=== PATIENT | male | born 1960 | race Caucasian/White ===

== ENCOUNTER 2025-04-03 16:03 | Inpatient (IN) | payer OTHER, SELFPAY ==
[2025-04-03 12:33] VITALS: BMI 24.1
[2025-04-03 13:19] LABS: Troponin I < 0.012 ng/ml
[2025-04-03 13:21] LABS: Hematocrit 46.1 % (39.0-52.0); Hemoglobin 15.9 g/dL (13.0-18.0); Mean Corp Hgb Conc. 34.5 g/dL (33.0-37.0); Mean Corpuscular Volume 91.1 fL (80.0-94.0); Nucleated Red Blood Cells % 0 % (-); Platelet Count 135 10^3/uL (130-400); Red Cell Dist. Width 12.9 % (11.5-14.5)
[2025-04-03 14:04] LABS: Blood Urea Nitrogen 20 mg/dl (9-20); Calcium 8.4 mg/dl (8.4-10.2); Carbon Dioxide 30 mmol/L (22-30); Chloride 101 mmol/L (98-107); Estimated Creatinine Clearance 99 ml/min; Glucose 269 mg/dl (70-99); Sodium 129 mmol/L (135-145); eGFR > 60.00
--- NOTE | 2025-04-03 14:13 | ED.GENMED ---
History of Present Illness
General
Chief Complaint: Cardiac Symptoms
Time Seen by Provider: 04/03/25 14:07
Nursing documentation reviewed up to this point in time: agreed with
History of Present Illness
History of Present Illness:
65-year-old male brought to the ER by longterm staff for evaluation of new onset atrial fibrillation. Patient denies any complaints or concerns. He is unaware of how he ended in the emergency department. Patient was in the infirmary due to alcohol
withdrawal symptoms. He denies any complaints of chest pain. He denies any prior personal history of atrial fibrillation. He reports feeling otherwise well. He is on Seroquel and carries a diagnosis of diabetes.
Review of Systems
Review of Systems
Allergies reviewed?: Yes
Phy Exam
Physical Exam
Physical Exam:
Patient is awake, alert, appears in no acute distress, head is NCAT, PERRL, EOMI mucous membranes moist, conjunctiva pink, heart irregular rate and rhythm without murmurs or ectopy, lungs are clear to auscultation without wheezes rales or rhonchi,
no JVD, abdomen is soft and nontender on palpation, extremities without edema, GCS is 15
Course
Orders/Labs/Results
Orders:
Orders
04/03/25 Breakfast
2000 calorie (17 carb) Diabetic
At Your Request: Full Participation
Does patient need a safe tray?: Yes
04/03/25 12:38
Electrocardiogram (*1) Urgent
Reason for Study: Tachycardia
EKG- Treatment ONCE
04/03/25 12:40
Complete Blood Count/With Diff Urgent
Troponin I Urgent
04/03/25 13:36
Basic Metabolic Panel Urgent
04/03/25 14:38
Add On- LAB Urgent
Tests Added?: Alcohol
04/03/25 14:42
Heparin 4,000 units IV NOW STA
Nursing to Place Non Medication Order As Directed
Physician Order: PTT 6 hours after initial start of Heparin infusion
Above order entered?: Yes
04/03/25 14:45
Heparin 40409 Units/250 ml 25,000 units in 250 ml IV PER PROTOCOL
Weight to be used for heparin protocol in kilograms (kg):: 71.8
Protocol:: Cardiac Tx/Acute Coronary
PTT Goal Range to be used:: PTT 73 to 111 seconds
Order type:: Initial
INITIAL Infusion Dose (UNITS/KG/hr) & then follow protocol:: 12 units/kg/hr
Infusion Dose in UNITS/hr & then follow protocol (UNITS/hr):: 850
INFUSION RATE in mL/hr & then follow protocol (mL/hr):: 8.5
PTT less than or equal to 64 seconds:: Increase rate by 200 units/hr (+ 2 mL/hr)
PTT 64.1 to 72.9 seconds:: Increase rate by 100 units/hr (+ 1 mL/hr)
PTT 73 to 111 seconds:: Target Range. No change in rate.
PTT 111.1 to 130.9 seconds:: Decrease rate by 100 units/hr (- 1 mL/hr)
PTT 131 to 199.9 seconds:: HOLD for 1 hr. Then decrease rate by 200 units/hr (- 2 mL/hr)
PTT greater than or equal to 200 seconds:: HOLD for 2 hrs & Notify Provider. Then decrease by 200 units/hr (-
2 mL/hr)
Lab follow-up:: Each change, PTT q6h until 2 consecutive are therapeutic. Then PTT
daily.
04/03/25 15:03
Admit/Transfer Patient As Directed
Co-Sign Provider:
Level of Care: Inpatient admission
Assign to:: Telemetry
Physician / Group: darrick
Diagnosis: new onset atrial fib
Reason for Telemetry: Arrhythmia
Date to Stop Telemetry: 04/06/25
Time to Stop Telemetry: 11:00
Reason for Hospitalization: new onset atrial fib
Expected length of stay greater than two midnights?: Yes
ELOS- Estimated Length of Stay in days: 3
I certify the patient meets the requirements for IP care: Yes
04/03/25 15:04
PRN Pain Medication Management As Directed
May give lesser potent ordered pain med per pt: Yes
preference::
Protocol:: Medication orders for pain may be administered in a
manner that supports deferring to patient preference
when the pt is:
- Requesting an ordered lesser potent pain medication.
Least to most potent pain medications are defined
as: acetaminophen < NSAID < tramadol < opioids
(morphine, oxycodone, hydromorphone).
- Requesting a lesser dose of the same medication IF
ORDERED.
- Requesting a less intrusive route of administration
if both routes are prescribed by the provider (PO <
IV).
04/03/25 15:05
Code Status As Directed
Resuscitation Status: Full Code
04/03/25 15:09
Add On- LAB Stat
Tests Added?: serum osmolality
Urine Osmolality Random [Osmolality, Random Urine] Stat
Urine Sodium Stat
04/03/25 15:15
Alcohol Urgent
PTT Urgent
Comment: Obtain baseline before beginning heparin infusion if not already collected
Serum Osmolality Urgent
Comment: ADD ON
04/03/25 17:06
Acetaminophen [Tylenol] 650 mg PO Q4HPRN PRN
Bisacodyl [Dulcolax] 10 mg RECTAL [id number] PRN
Dextrose 50%-Water [Dextrose 50% Syringe] 12.5 grams IV [id number] PRN
Docusate W/Senna [Senokot-S] 1 tablet PO BIDPRN PRN
FOLic ACID [Folvite] 1 mg 0.9% Sodium Chloride 50 ml [Nss] 50 ml IV DAILYPRN
Glucagon [GlucaGen] 1 mg IM PRN PRN
Insulin Aspart Corrective Low [Novolog Flexpen-Low Resistance] See Protocol SC AC
Lorazepam [Ativan] 1 mg PO Q2HPRN PRN
Polyethylene Glycol Powder [Miralax] 17 grams PO DAILYPRN PRN
04/03/25 17:06
CARDIOLOGY CONSULT Routine
Consulting Provider: Camille Song
Was physician already notified: Yes
Case Management Consult Once
Case Management Consult: Other
Comment: Substance abuse counseling
DIETARY IP CONSULT Routine
Reason for Consult: Nutrition support, possible refeeding guidelines
Heparin Protocol- PTT Orders As Directed
PTT per Heparin protocol: -Obtain CBC and baseline PTT - if not already collected.
-Obtain PTT 6 hours from start of infusion. Then, every 6 hours until 2 consecutive
PTT's are therapeutic. Then, PTT Daily.
-With each rate change, obtain PTT every 6 hours until 2 consecutive PTT's are
therapeutic. Then, PTT Daily.
Activity As Directed
Activity Level: As Tolerated
Bedside Glucose Monitoring As Directed
Frequency: AC&HS
Additional Instructions:: Change to q6h if pt on TPN, tube feeding or not eating
MSAS SCORE As Directed
MSAS Score 0-4: Repeat MSAS every 2 hours until 0-4 for three consecutive assessments, then every 4 hours x 48
hours.
MSAS Score 5-7: For MILD withdrawl symptoms. Repeat MSAS and RASS every 2 hours
MSAS Score 8-11: For MODERATE withdrawal symptoms. Repeat MSAS and RASS every 1 hour. Consider ICU or IMU
level of care.
MSAS Score > 11: For SEVERE withdrawal symptoms. Repeat MSAS and RASS every 1 hour. Notify provider, consider
ICU level of care.
MSAS Additional Instructions: If no improvement or no decrease in score from severe to moderate within 12
hours, consult psychiatry
MSAS Notify Provider: Notify provider if patient requires more than 10 mg of Lorazepam in eight hour period.
Notify MD As Directed
Notify physician if: PTT is greater than or equal to 200.
Vital Signs As Directed
Frequency: Per unit guidelines
04/03/25 17:22
diazePAM [Valium Injection] 5 mg IV Q1HPRN PRN
04/03/25 17:23
diazePAM [Valium Injection] 10 mg IV Q1HPRN PRN
04/03/25 20:00
Thiamine Injection 200 mg IV Q12
04/03/25 21:45
PTT Urgent
04/03/25 22:00
Quetiapine Fumarate [Seroquel] 50 mg PO HS
04/04/25 06:00
Basic Metabolic Panel IN AM
Cardiovascular Evaluation IN AM
Complete Blood Count/No Diff IN AM
Glycohemoglobin (HgbA1c) IN AM
04/04/25 08:00
FOLic ACID [Folvite] 1 mg PO DAILY
Quetiapine Fumarate [Seroquel] 25 mg PO DAILY
04/05/25 06:00
Basic Metabolic Panel IN AM
Complete Blood Count/No Diff IN AM
Complete Blood Count/No Diff Q2D
Comment: notify provider: Platelet count < 130,000 or decrease by 50% from baseline
04/06/25 06:00
Basic Metabolic Panel IN AM
Complete Blood Count/No Diff IN AM
04/06/25 11:00
DC Protocol for Telemetry ONCE
04/06/25 20:00
Thiamine HCl [Vitamin B1] 100 mg PO BID
04/07/25 06:00
Complete Blood Count/No Diff Q2D
Comment: notify provider: Platelet count < 130,000 or decrease by 50% from baseline
04/09/25 06:00
Complete Blood Count/No Diff Q2D
Comment: notify provider: Platelet count < 130,000 or decrease by 50% from baseline
04/11/25 06:00
Complete Blood Count/No Diff Q2D
Comment: notify provider: Platelet count < 130,000 or decrease by 50% from baseline
04/13/25 06:00
Complete Blood Count/No Diff Q2D
Comment: notify provider: Platelet count < 130,000 or decrease by 50% from baseline
04/15/25 06:00
Complete Blood Count/No Diff Q2D
Comment: notify provider: Platelet count < 130,000 or decrease by 50% from baseline
04/17/25 06:00
Complete Blood Count/No Diff Q2D
Comment: notify provider: Platelet count < 130,000 or decrease by 50% from baseline
04/19/25 06:00
Complete Blood Count/No Diff Q2D
Comment: notify provider: Platelet count < 130,000 or decrease by 50% from baseline
Abnormal Lab Results
04/03/25 04/03/25
12:40 13:36
MCH 31.4 H pg
(27.0-31.0)
MPV 11.3 H fL
(7.4-10.4)
Absolute Monos (auto) 0.8 H 10^3/uL
(0.1-0.6)
Monocytes % 12.1 H %
(1.7-9.3)
Sodium 129 L mmol/L
(135-145)
Glucose 269 H mg/dl
(70-99)
04/03/25 12:40
04/03/25 13:36
No hyponatremia, kidney function preserved. Mild elevation of glucose. CBC within normal limits
Vital Signs
Initial and Last Documented VS:
Initial Vital Signs
Temp
97.7 F
04/03/25 12:33
Last Documented Vital Signs
Temp Pulse Resp BP Pulse Ox
97.8 F 68 18 133/61 99
04/03/25 17:15 04/03/25 17:15 04/03/25 17:15 04/03/25 17:15 04/03/25 17:15
MDM/Problems Addressed
Differential Diagnosis Includes:
Differential diagnosis to consider but not limited to electrolyte dyscrasia, holiday heart, arrhythmia, along with other etiologies considered
Chronic conditions affecting care:
Incarceration, advanced age, mental health disorder, diabetes
*Pulse Oximetry
SaO2: 99
Oxygen Mode of Delivery: Room air
Patient hypoxic: no
*Critical Care Note
Total Time (30-74mins, 75-104mins- exclusive of procedures): Not Applicable
Update Note
Update Note:
Patient resting comfortably. Given patient is currently incarcerated with no prior history of A-fib and is asymptomatic, would feel necessary for inpatient evaluation to complete cardiac assessment and initiation of anticoagulation. I reviewed
full patient presentation with the hospitalist who accepts patient for admission.
ED Attending Note
-
Portions of this chart may have been created with voice recognition software.� Occasional wrong word or��sound alike� substitutions may have occurred due to the inherent limitations of voice recognition software.
Discharge Plan
Departure
Patient Disposition: Admit
Date of Disposition: 04/03/25
Time of Disposition: 14:44
Presentation/result/management discussed w/ accepting MD/DO: Hospitalist
Discharge Problem:
Atrial fibrillation
Interventions
Interventions:
*Risk Screen - Suicide Last Done: 04/03/25 12:33
*General Assessment Last Done: 04/03/25 12:33
*Neglect/Abuse Screening Last Done: 04/03/25 12:33
*ED- Fall Risk Assessment Last Done: 04/03/25 12:33
*ED COVID-19 Vaccine History Last Done: 04/03/25 12:33
*Nursing Disposition Last Done: 04/03/25 16:54
ED- Pulmonary Assessment Last Done: 04/03/25 12:33
ED- Cardiac Assessment Last Done: 04/03/25 12:33
Discharge Date and Time
Discharge Date/Time: 04/03/25 16:54
--- NOTE | 2025-04-03 14:44 | HPS.HSE ---
Family Physician
-
Family Physician: [facility]
Chief Complaint
-
irregular HR
History of Present Illness
65 year old with PMH for DM non compliance with insulin,alcohol abuse presented to us with abnormal heart rhythm from [facility]. he was admitted to [facility] on last Thursday. he had abnormal EKG at long-term. patient denied chest pain, palpitation,fever, chills,
PATEL,dizzy or syncope. denied cough, congestion. denied abdominal pain,n,v,d. denied dysuria or hematuria.
upon arrival he was noted in atrial fib, HR controlled. initiated on heparin drip. admitting for further management.
Patient has a history of alcohol abuse/his last drink was on /he drinks 12 pack of beer
Medical History
Past Medical History
Past Medical History: Reports Other
Additional Past Medical History:
Type 2 diabetes, alcohol abuse
Past Surgical History: Reports None
Social History
Tobacco: Smoker (Half a pack)
Alcohol: Daily (12 packs of beer)
Drug: None
Living: Detention
Family History
Family History: Not pertinent
Allergies / Home Medications
Allergies reflects when Allergies were last updated in [facility].
Home Medications with original date entered in [facility]
Allergy/Medication List:
Allergies
Allergy/AdvReac Type Severity Reaction Status Date / Time
No Known Allergies Allergy Unverified 04/03/25 14:50
Home Medications
clonazepam 0.5 mg tablet 0.5 mg PO BID 04/03/25
clonazepam 0.5 mg tablet 0.5 mg PO DAILY 04/03/25
clonazepam 1 mg tablet 1 mg PO BID 04/03/25
diphenhydramine HCl 25 mg capsule (Benadryl) 25 mg PO BID 04/03/25
folic acid 1 mg tablet 1 mg PO DAILY 04/03/25
magnesium 200 mg tablet 400 mg PO DAILY 04/03/25
multivitamin 1 tab PO DAILY 04/03/25
quetiapine 25 mg tablet (Seroquel) 25 mg PO DAILY 04/03/25
quetiapine 50 mg tablet (Seroquel) 50 mg PO HS 04/03/25
Review of Systems
-
Constitutional: Reports No Symptoms
EENT: Reports No Symptoms
Respiratory: Reports No Symptoms
Cardiac: Reports No Symptoms
Abdomen/GI: Reports No Symptoms
: Reports No Symptoms
Musculoskeletal: Reports No Symptoms
Skin: Reports No Symptoms
Neurological: Reports No Symptoms
Endocrine: Reports No Symptoms
Hematologic/Lymphatic: Reports No Symptoms
Psych: Reports No Symptoms
Physical Exam
Vital Signs
Vital Signs
Temp Pulse Resp Pulse Ox
97.7 F 67 18 100
04/03/25 12:33 04/03/25 14:30 04/03/25 14:30 04/03/25 14:30
Physical Exam
General: Well Developed, Well Nourished and No Apparent Distress
HEENT: NormoCephalic, Moist mucous membranes and Atraumatic
Respiratory: Clear
Cardiac: S1/S2 and Regular Rhythm; No Murmur or Rub
GI: Soft, Non Tender, Non Distended and Normal Bowel Sounds; No Organomegaly
Rectal: Deferred by Provider
Musculoskeletal: No Clubbing, No Cyanosis and No Edema
Skin: No Rash
Neuro: AO x 3 and Nonfocal/grossly intact
Psych: Calm
Laboratory Results
-
04/03/25 12:40
04/03/25 13:36
Laboratory Results
Total Bilirubin Cancelled 04/03/25 13:36
AST Cancelled 04/03/25 13:36
ALT Cancelled 04/03/25 13:36
Alkaline Phosphatase Cancelled 04/03/25 13:36
Troponin I < 0.012 ng/ml 04/03/25 12:40
Data Reviewed
-
Lab Data: Labs Reviewed by me
Impression/Plan
-
# asymptomatic atrial flutter
- EKG with a flutter with variable AV block, right bundle branch block
- Heparin drip continue
- Obtain echocardiogram
- Cardiology consulted
# Hyponatremia likely hypovolemic
-corrected sodium is 133
-Obtain serum osmolality, urine sodium, osmolality
-BMP in a.m.
# Alcohol abuse
-drink 12 packs of beer
-last drink was on
- Alcohol level pending
# DVT prophylaxis
-On heparin
# CODE STATUS
-Full code
[2025-04-03 15:00] VITALS: BP 123/64
[2025-04-03 15:32] LABS: APTT 28.7 Sec (23.4-35.0)
--- NOTE | 2025-04-03 15:36 | W.PN.UPDATE ---
Update Note
Progress Note Update
I saw and examined the patient.
The PROFESSIONAL NURSING TUTOR Daniel's note was reviewed and I agree with the note.
Comment: 65 y/o M, hx of Type 2 DM, Alcohol intake (daily), daily smoker, presenting from [facility] with screening EKG showing A.Flutter. He was admitted to longterm Thursday. Patient reports last drink . Denies any SOB, palpitations, chest pain, no
fever/chills. No syncope. No other complaints.
in ER, rate controlled Aflutter on EKG. patient started on IV heparin drip. No evidence of acute alcohol withdrawal. Na 129.
Exam:
General: Well Developed, Well Nourished and No Apparent Distress
HEENT: Normocephalic, Moist mucous membranes and Atraumatic
Respiratory: Clear
Cardiac: Irregular rhythm. No Murmur or Rub
GI: Soft, Non Tender, Non Distended and Normal Bowel Sounds; No Organomegaly
Rectal: Deferred by Provider
Musculoskeletal: No Clubbing, No Cyanosis and No Edema
Skin: No Rash
Neuro: AO x 3 and Nonfocal/grossly intact
Psych: Calm
Plan: Asymptomatic A. Flutter. Echo. Tele. IV heparin. presently rate controlled. [facility] Cardiology evaluation. Monitor for ETOH withdrawal. Na 133 when corrected for hyperglycemia. SSI - he reports no diabetes meds. Rest of plan as per SEAN Sanchez's note.
[2025-04-03] MEDS: HEPARIN 25000 UNITS/250 ML IV (15:40)
[2025-04-03] MEDS: HEPARIN 4000 UNITS IV (15:41)
[2025-04-03 16:00] VITALS: BP 124/62
[2025-04-03 17:15] VITALS: BP 133/61
[2025-04-03 17:15] LABS: Glucose - Point of Care 134 mg/dl (70-99)
[2025-04-03] MEDS: NOVOLOG FLEXPEN-LOW RESISTANCE SC (17:21)
[2025-04-03 17:22] VITALS: BMI 22.9
[2025-04-03 17:42] VITALS: BMI 22.9
[2025-04-03 19:00] VITALS: BP 118/60
[2025-04-03] MEDS: THIAMINE INJECTION 200 MG IV (21:10)
[2025-04-03] MEDS: SEROQUEL 50 MG PO (21:11)
[2025-04-03 22:09] LABS: Glucose - Point of Care 273 mg/dl (70-99)
[2025-04-03 22:24] LABS: APTT 66.5 Sec (23.4-35.0)
[2025-04-03 23:00] VITALS: BP 126/59
[2025-04-04 03:00] VITALS: BP 134/78
[2025-04-04 04:20] VITALS: BMI 23.7
[2025-04-04 05:00] LABS: APTT 78.0 Sec (23.4-35.0)
[2025-04-04 06:00] VITALS: BMI 23.0
--- NOTE | 2025-04-04 08:14 | W.PN.UPDATE ---
Update Note
Progress Note Update
I saw and evaluated the patient. I reviewed the resident�s note and agree with findings and plan as documented in the resident�s note.
No acute complaints.
Gen: NAD, AAOx3.
Eyes: EOMI, PERRLA, no scleral icterus.
Neck: supple.
CV: RRR, +S1/S2, no m/r/g.
Resp: CTAB, no rales, wheezes, or rhonchi.
Abd: +BS, soft, NT, ND
Skin: No rashes.
Neuro: CN 2-12 intact, non-focal.
Psych: Normal mood and affect.
Aflutter:
- Asymptomatic and currently rate controlled
- Check echo
- Consult cardiology
- Currently on heparin drip
Alcohol abuse disorder:
- Last drink 03/30/25
- MSAS protocol (thiamine/folate/PRN valium)
Hyperglycemia:
- Check A1c
- SSI/accuchecks
Hyponatremia, mild
FULL/Heparin
Dispo: Likely d/c later today
[2025-04-04 08:50] VITALS: BP 136/76
[2025-04-04] MEDS: SEROQUEL 25 MG PO (09:00)
[2025-04-04] MEDS: FOLVITE 1 MG PO (09:00)
[2025-04-04] MEDS: THIAMINE INJECTION 200 MG IV ×2 (09:00→19:58)
[2025-04-04 09:07] LABS: Glucose - Point of Care 150 mg/dl (70-99)
[2025-04-04] MEDS: NOVOLOG FLEXPEN-LOW RESISTANCE SC (09:15)
--- NOTE | 2025-04-04 10:42 | CON.CAR ---
Addendum entered and electronically signed by Fredis Villa MD 04/04/25 12:17:
I saw and examined the patient.
The ELECTRICAL DESIGN TECHNICIAN or PA's note was reviewed and I agree with the note.
Comment: General: Well developed, well nourished in NAD.
Neck: Supple, no JVD, HJR, carotids +2 B/L, no bruits bilaterally.
Heart: Non displaced PMI, irregular, no murmurs, No S3, S4, no rubs.
Lungs: Clear to auscultation bilaterally, no wheeze, rhonchi, rubs bilaterally,
normal expiratory phase.
Abdomen: Normal bowel sounds, soft, non-tender, non-distended.
Extremities: No clubbing, cyanosis or edema bilaterally.
Neuro: Grossly nonfocal, awake, alert and oriented x3.
Fredis has a history of alcohol use. He was arrested for failing to appear for DUI charge. In assisted while going through withdrawal he noted palpitations. He brought to the ER and found to be in rapid atrial flutter.
Echocardiogram with normal LV function. Will add Cardizem. Will change heparin to Eliquis. Will arrange JOHAN/cardioversion on 04/05 after risks and benefits explained to patient in detail
Original Note:
Consultation
Consultation Request
Date/Time Consultation Requested: 04/03/2025 at 1706
Date/Time Consultation Performed: 04/04/2025 at 1032
Requesting Provider: Dr. Lopez
Performing Provider: Dr. Villa
Reason for Consultation: Newly diagnosed atrial flutter of unclear duration
Medical History
-
History of Present Illness:
Patient came to the ER from assisted yesterday with newly diagnosed atrial flutter and cardiology is consulted. Patient says that he is dealing with EtOH use disorder and was arrested for failing to appear for a DUI charge. He was feeling fine, but
while going through withdrawal he was seen in the assisted health clinic and noted to be in atrial flutter. He denies feeling any palpitations, chest pain or SOB. He says he does not receive regular medical care as an outpatient has never seen a
rigging supervisor nor has he had any cardiac testing. Patient denies any known family history of heart disease. When he is drinking he can easily drink 12 beers in a day. He also smokes about a half a pack of cigarettes a day. He is never been tested
for sleep apnea.
PMH:
ETOH use disorder
Past Medical History
Past Medical History: Other (In HPI)
Past Surgical History: None (Denies previous surgery)
Social History
Tobacco: Smoker
Alcohol: Chronic Alcoholic
Drug: None (Denies)
Living: Detention
Family History
Family History: Other (No family history of atrial arrhythmia that he knows of)
Allergies / Home Medications
Allergy/AdvReac Type Severity Reaction Status Date / Time
No Known Allergies Allergy Unverified 04/03/25 14:50
�Medication �Instructions �Recorded �Confirmed �Type
clonazepam 1 mg tablet 1 mg PO .TAPER 04/03/25 04/03/25 History
diphenhydramine HCl 25 mg capsule 25 mg PO BID Allergies 04/03/25 04/03/25 History
(Benadryl)
folic acid 1 mg tablet 1 mg PO DAILY Supplement 04/03/25 04/03/25 History
magnesium 200 mg tablet 400 mg PO DAILY Supplement 04/03/25 04/03/25 History
multivitamin 1 tab PO DAILY Supplement 04/03/25 04/03/25 History
quetiapine 25 mg tablet (Seroquel) 25 mg PO DAILY Mental 04/03/25 04/03/25 History
Health/Anxiety
quetiapine 50 mg tablet (Seroquel) 50 mg PO HS 04/03/25 04/03/25 History
thiamine HCl (vitamin B1) 100 mg 100 mg PO DAILY Supplement 04/03/25 04/03/25 History
tablet (Vitamin B-1)
Review of Systems
-
History Source: Patient
All other systems: Negative unless noted
Physical Exam
Vital Signs
Temp Pulse Resp BP Pulse Ox
97.6 F 77 16 136/76 77
04/04/25 08:50 04/04/25 08:50 04/04/25 08:50 04/04/25 08:50 04/04/25 08:50
GEN: NAD, AAO x 3
HEENT: EOMI, MMM
LUNGS: RA. CTAB/L without wheeze
CV: Atrial flutter on telemetry. Irreg, S1/S2, no appreciable murmur
ABD: soft, BS+, NT, ND
EXT: No edema B/L LE
NEURO: Gross non-focal
SKIN: No rash
Lab Results
Troponin I < 0.012 ng/ml 04/03/25 12:40
Impression / Plan
-
PCP: None
Cardiology: None
Impression:
Admitted with asymptomatic atrial flutter 04/03/2025
Newly diagnosed paroxysmal typical atrial flutter with RVR
Hyponatremia
EtOH use disorder, severe
Active smoker
Hyperglycemia
Plan:
-Patient came to the ER from assisted yesterday with newly diagnosed atrial flutter and cardiology is consulted. Patient says that he is dealing with EtOH use disorder and was arrested for failing to appear for a DUI charge. He was feeling fine, but
while going through withdrawal he was seen in the assisted health clinic and noted to be in atrial flutter. He denies feeling any palpitations, chest pain or SOB. He says he does not receive regular medical care as an outpatient has never seen a
rigging supervisor nor has he had any cardiac testing. Patient denies any known family history of heart disease. When he is drinking he can easily drink 12 beers in a day. He also smokes about a half a pack of cigarettes a day. He is never been tested
for sleep apnea.
-ECG reviewed by me looks like typical atrial flutter
-Talk to patient about plans for JOHAN/CV to try and restore SR
-For now we will add Cardizem CD 120 mg daily, patient was not taking any AV danna blockers as an outpatient
-Patient denies any palpitations and overall seems to be asymptomatic. Duration of atrial arrhythmia unknown. Await JOHAN at time of procedure tomorrow to check EF.
-Heparin gtt was started overnight and will transition to Eliquis 5 mg BID (age 65, wt 68 kg). Patient is currently a part of the [facility] system and they should be able to supply his medication.
-Patient has never had an PAU evaluation, would recommend this for outpatient study
-Check TSH, ordered by me
-HgbA1c is pending after he was noted to be hyperglycemic
-Patient was going through withdrawal, but appears stable now. He says he has severe EtOH use disorder and was drinking 12 beers a day prior to incarceration. EtOH reduction and cessation will be helpful in reducing future recurrence of atrial
arrhythmia.
-He is still smoking about half a pack a day and again eliminating this habit will be beneficial to his cardiovascular and arrhythmia health.
--- NOTE | 2025-04-04 10:44 | W.CHA2DS2VAS ---
[id number] Score
Score
Age in Years (65=0, 65-74=1, >/=75=2): 65-74
Sex (Female=+1): Male
Congestive Heart Failure History (Yes=+1): No
Hypertension History (Yes=+1): No
Stroke/TIA/Thromboembolism History (Yes=+2): No
Vascular Disease History (Yes=+1): No
Diabetes Mellitus (Yes=+1): No
Score >/=2 is otherwise an anticoagulation candidate: 1
[2025-04-04 11:01] LABS: Hematocrit 43.6 % (39.0-52.0); Hemoglobin 15.4 g/dL (13.0-18.0); Mean Corp Hgb Conc. 35.3 g/dL (33.0-37.0); Mean Corpuscular Volume 89.9 fL (80.0-94.0); Platelet Count 134 10^3/uL (130-400); Red Cell Dist. Width 12.9 % (11.5-14.5)
[2025-04-04 11:12] LABS: APTT 65.1 Sec (23.4-35.0)
[2025-04-04 11:18] LABS: Blood Urea Nitrogen 18 mg/dl (9-20); Calcium 8.3 mg/dl (8.4-10.2); Carbon Dioxide 29 mmol/L (22-30); Chloride 102 mmol/L (98-107); Estimated Creatinine Clearance 99 ml/min; Glucose 195 mg/dl (70-99); HDL Cholesterol 100 mg/dl; LDL Cholesterol, Calculated 58 mg/dl; Potassium 4.1 mmol/L (3.5-5.1); Sodium 132 mmol/L (135-145); Very Low Density Lipoprotein 13 mg/dl (0-30); eGFR > 60.00
[2025-04-04 11:21] VITALS: BP 133/72
[2025-04-04 11:42] LABS: Glucose - Point of Care 218 mg/dl (70-99)
--- NOTE | 2025-04-04 12:01 | W.PN.HOSP.TC ---
Addendum entered and electronically signed by Delmy Mota MD, Resident 04/04/25 12:39:
Subjective: The patient has no specific complaints today. He denies palpitations, shortness of breath, chest pain,nausea, vomiting, fever, tremors, lightheadedness.
ROS:
Constitutional: Denies fever, weakness
EENT: Denies symptoms
Respiratory: Denies shortness of breath, cough
Cardiac: Denies chest pain, diaphoresis, palpitations
Abdominal/GI: Denies abdominal pain, nausea, vomiting, diarrhea
Neuro: Denies headache, numbness, tremors
PE:
General:comfortable, conversant
HEENT :normocephalic, anicteric
Respiratory :clear to auscultation
Cardiac: Normal rhythm, S1/S2
GI: Soft, nontender, NBS
Musculoskeletal: No edema
Neuro: AO x3, no tremors
Original Note:
Today's Communication/Plan
-
Stable for discharge
continue Eliquis as outpatient
Hba1c pending--outpatient DM medication tf
Continue to monitor
Assessment / Plan
Assessment / Plan
65-year-old with past medical history of diabetes mellitus, and chronic alcohol abuse presented to the ER for asymptomatic abnormal heart rhythm.
#atrial flutter
-asymptomatic, Regular HR/R
-EKG with a flutter with variable AV block, right bundle branch block
-ECHO: EF: 55%, Mild concentric left ventricular hypertrophy, Mild to moderate mitral valve regurgitation
-continue Heparin drip
-Eliquis 5mg PO BID as outpatient
-Cardiology consulted
Troponin 0.012
# Hyponatremia
-corrected 134 N
-trend BMP
#DM
-269 glucose
-serum osm: 288
Urine osm:753, sodium urine: 85
-SSI, accuchecks
-metformin as outpatient, Hba1c pending
# Alcohol abuse
-drink 12 packs of beer
-last drink was on 03/30/2025
-clonazapam
-Thiamine hcl 200mg IV--> 100mg PO as outpatient
-stop drinking alcohol
# DVT prophylaxis
-Heparin drip
# CODE STATUS
-Full code
Anticipated Discharge: Today
Subjective/Interval History
-
Date of Service: April 04, 2025
Objective Data
-
Labs:
Laboratory Results
04/04/25 04/04/25 04/04/25
04:40 10:39 17:35
WBC 6.5
Hgb 15.4
Hct 43.6
Plt Count 134
APTT 78.0 H 65.1 H Pending
Sodium 132 L
Potassium 4.1
Chloride 102
Carbon Dioxide 29
BUN 18
Creatinine 0.7
Glucose 195 H
Calcium 8.3 L
Vital Signs:
Vital Signs
Temp Pulse Resp BP Pulse Ox
97.6 F 115 16 133/72 100
04/04/25 11:21 04/04/25 11:21 04/04/25 11:21 04/04/25 11:21 04/04/25 11:21
I&O
04/03/25 04/04/25 04/05/25
06:59 06:59 06:59
Intake Total 240 / 240
Output Total 200 / 200
Balance 40 / 40
[2025-04-04 12:38] LABS: Glycohemoglobin (HgbA1c) 8.8 % (4.0-5.6)
[2025-04-04 13:06] LABS: Hepatitis C Antibody Reactive (Negative)
[2025-04-04] MEDS: NOVOLOG FLEXPEN-LOW RESISTANCE 2 UNITS SC (14:19)
[2025-04-04 15:00] VITALS: BP 152/72
--- NOTE | 2025-04-04 15:25 | CM ---
Pt is a prisoner at [facility]. As per [facility] patient will receive substance abuse counseling at care home.
Currently on Heparin Gtt.
He does not use adaptive devices.
Pharmacy [place]
PCP Dr Velázquez
PLAN Return to [facility] with guards
[2025-04-04 17:20] LABS: Glucose - Point of Care 305 mg/dl (70-99)
[2025-04-04] MEDS: HEPARIN 25000 UNITS/250 ML IV (17:50)
[2025-04-04 18:30] LABS: APTT 95.7 Sec (23.4-35.0)
[2025-04-04] MEDS: NOVOLOG FLEXPEN-LOW RESISTANCE 4 UNITS SC (18:30)
[2025-04-04] MEDS: CARDIZEM CD 120 MG PO (18:38)
[2025-04-04 19:00] VITALS: BP 133/63
[2025-04-04] MEDS: ELIQUIS 5 MG PO (19:59)
[2025-04-04 21:38] LABS: Glucose - Point of Care 146 mg/dl (70-99)
[2025-04-04] MEDS: SEROQUEL 50 MG PO (21:42)
[2025-04-04 23:00] VITALS: BP 148/70
[2025-04-05 00:12] LABS: Glucose - Point of Care 113 mg/dl (70-99)
--- NOTE | 2025-04-05 02:21 | DOWNTIME ---
There was a [employer] [facility] Downtime on 04/05/2025 from 0100 to 04/05/2025 at 0215. Downtime documentation of patient's care, including medication administrations, has been reconciled in the electronic record per guidelines. Refer to the
patient's paper chart under the miscellaneous tab to see printed paper medication records and downtime forms.
[2025-04-05 03:00] VITALS: BP 105/49
[2025-04-05 03:53] VITALS: BMI 23.2
[2025-04-05 05:56] LABS: Glucose - Point of Care 139 mg/dl (70-99)
[2025-04-05 06:00] VITALS: BMI 23.2
[2025-04-05 07:14] LABS: Hematocrit 45.0 % (39.0-52.0); Hemoglobin 15.7 g/dL (13.0-18.0); Mean Corp Hgb Conc. 34.9 g/dL (33.0-37.0); Mean Corpuscular Volume 89.1 fL (80.0-94.0); Platelet Count 121 10^3/uL (130-400); Red Cell Dist. Width 12.8 % (11.5-14.5)
[2025-04-05 07:20] LABS: ALT (SGPT) 139 U/L (0-50); AST (SGOT) 119 U/L (17-59); Albumin 3.1 g/dl (3.5-5.0); Alkaline Phosphatase 100 U/L (38-126); Blood Urea Nitrogen 19 mg/dl (9-20); Calcium 8.9 mg/dl (8.4-10.2); Carbon Dioxide 25 mmol/L (22-30); Chloride 105 mmol/L (98-107); Estimated Creatinine Clearance 99 ml/min; Glucose 106 mg/dl (70-99); Potassium 4.2 mmol/L (3.5-5.1); Sodium 132 mmol/L (135-145); Total Protein 7.0 g/dl (6.3-8.2); eGFR > 60.00
[2025-04-05 07:30] VITALS: BP 124/60
--- NOTE | 2025-04-05 08:12 | W.PN.UPDATE ---
Addendum entered and electronically signed by Alejandro Lopez MD 04/05/25 13:08:
Patient was cardioverted back in a sinus rhythm. He is medically cleared for discharge.
Total time spent on d/c = 36 min. This included today's physical exam, progress note, review of laboratory and diagnostic data, preparation of discharge documents and prescriptions, and discussions about the pt's hospital course and discharge plan
with the patient and other medical transcription radiology involved in the patient's care.
Original Note:
Update Note
Progress Note Update
I saw and evaluated the patient. I reviewed the resident�s note and agree with findings and plan as documented in the resident�s note.
No acute complaints. Denies CP/SOB.
Gen: NAD, AAOx3.
Eyes: EOMI, PERRLA, no scleral icterus.
Neck: supple.
CV: remains RRR, +S1/S2, no m/r/g.
Resp: remains CTAB, no rales, wheezes, or rhonchi.
Abd: remains +BS, soft, NT, ND
Skin: No rashes.
Neuro: CN 2-12 intact, non-focal.
Psych: Normal mood and affect.
Echo:
1. Left ventricular ejection fraction is normal with an ejection fraction of 55 % by Taylor's biplane method of discs.
2. Indexed left atrial volume is within normal range (15-34 ml/m2).
3. Mild concentric left ventricular hypertrophy.
4. Mild to moderate mitral valve regurgitation.
5. More prominent focal thickening of the anterior leaflet tip noted.
Aflutter:
- Asymptomatic and currently rate controlled at rest
- echo above
- cards following
- cont Cardizem/Eliquis
- for JOHAN/CV today
Alcohol abuse disorder:
- Last drink 03/30/25
- MSAS protocol (thiamine/folate/PRN valium)
- currently without evidence of acute EtOH W/D
DM2:
-a1c 8.8%
-SSI/accuchecks
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
-start Metformin 1g BID (pt states he was on Metformin at home)
-pt states he was on SSI JIG AND FIXTURE REPAIRER but was noncompliant recently
Transaminitis:
-HCV Ab POS, HCV RNA pending
-outpt GI follow up
Hyponatremia, mild
FULL/Eliquis
[2025-04-05] MEDS: NOVOLOG FLEXPEN-LOW RESISTANCE SC ×2 (08:44→14:23)
--- NOTE | 2025-04-05 08:53 | PN.DE.MGMTRT ---
Insulin Management
- -
04/05/2025 Diabetes Management Consult
Patient admitted from [facility] 04/03 with new onset Afib. No PMH (has not seen doctor for at least 8 years). A1C on admission 8.8%, cr .7, eGFR > 60.
Patient is awake alert and oriented able to discuss diabetes care. States he has not seen a doctor for care in years. States he had no insurance or money so did not see doctor or take medications. He states he has had diabetes ~ 15 years, was on
metformin and insulin in the past but not sure of what insulin or doses.
Glucose on admission 269, range yesterday [address] Lopez has ordered metformin 1000 mg BID. Patient is NPO for cardioversion today.
Due to incarceration unable to provide glucose monitor.
Discussed with nurse.
Will follow.
Diabetes History
- -
Type of Diabetes: 2
Pre-Admission Diabetes Regimen
04/04/25 04/05/25
10:39 05:53
Creatinine 0.7 0.7
Lab Results
Hemoglobin A1c 8.8 % (4.0-5.6) H 04/04/25 10:39
Insulin Pump Settings
IP Diabetes Regimen
04/04/25 04/04/25 04/04/25
09:06 10:39 11:41
Glucose 195 H
POC Glucose 150 H 218 H
04/04/25 04/04/25 04/05/25
17:18 21:36 00:11
Glucose
POC Glucose 305 H 146 H 113 H
04/05/25 04/05/25
05:53 05:54
Glucose 106 H
POC Glucose 139 H
Meal type: Lunch
Meal type: Breakfast
Amount consumed: 100%
Amount consumed: 100%
Patient Education
[2025-04-05] MEDS: ELIQUIS 5 MG PO (09:36)
[2025-04-05] MEDS: CARDIZEM CD 120 MG PO (09:36)
[2025-04-05] MEDS: SEROQUEL 25 MG PO (09:37)
[2025-04-05] MEDS: FOLVITE 1 MG PO (09:37)
[2025-04-05] MEDS: THIAMINE INJECTION 200 MG IV (09:37)
--- NOTE | 2025-04-05 10:40 | W.PN.CARDCBS ---
Addendum entered and electronically signed by Jael Balderas PA-C 04/05/25 12:42:
Patient had a successful JOHAN/CV today. Patient should remain on Cardizem CD1 120 mg daily plus Eliquis 5 mg BID, medication changes outlined by me on discharge instructions. Additionally we will work on office follow-up and so long as patient is
still incarcerated he can be brought to the [facility] for follow-up. Patient is stable for discharge from a cardiac standpoint.
Original Note:
Today's Communication / Plan
-
For JOHAN/cardioversion later today and discharge afterwards
Impression / Plan
-
PCP: None
Cardiology: None
Impression:
Admitted with asymptomatic atrial flutter 04/03/2025
Newly diagnosed paroxysmal typical atrial flutter with RVR
Hyponatremia
EtOH use disorder, severe
Active smoker
Hyperglycemia
Echocardiogram 04/04/2025: EF 55%, mild concentric LVH, mild to moderate MR
Plan:
Remains in rate controlled atrial flutter
For JOHAN/cardioversion later today
Continue Cardizem and Eliquis
Consider eventual outpatient sleep evaluation to exclude sleep apnea
Consider ablation if recurrent atrial flutter
Probable discharge after JOHAN/cardioversion later today
Discussed with primary service
.
PREADMIT DATA
-Patient came to the ER from [facility] yesterday with newly diagnosed atrial flutter and cardiology is consulted. Patient says that he is dealing with EtOH use disorder and was arrested for failing to appear for a DUI charge. He was feeling fine, but
while going through withdrawal he was seen in the [facility] clinic and noted to be in atrial flutter. He denies feeling any palpitations, chest pain or SOB. He says he does not receive regular medical care as an outpatient has never seen a
missile tracking technician nor has he had any cardiac testing. Patient denies any known family history of heart disease. When he is drinking he can easily drink 12 beers in a day. He also smokes about a half a pack of cigarettes a day. He is never been tested
for sleep apnea.
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
Subjective
Date of Service: April 05, 2025
No complaints.
Objective
Labs:
04/05/25 05:52
04/05/25 05:53
Labs
Hgb 15.7 g/dL (13.0-18.0) 04/05/25 05:52
Hct 45.0 % (39.0-52.0) 04/05/25 05:52
Plt Count 121 10^3/uL (130-400) L 04/05/25 05:52
APTT 95.7 Sec (23.4-35.0) H 04/04/25 18:11
Sodium 132 mmol/L (135-145) L 04/05/25 05:53
Potassium 4.2 mmol/L (3.5-5.1) 04/05/25 05:53
BUN 19 mg/dl (9-20) 04/05/25 05:53
Creatinine 0.7 mg/dL (0.7-1.3) 04/05/25 05:53
Glucose 106 mg/dl (70-99) H 04/05/25 05:53
Troponins
04/03/25
12:40
Troponin I < 0.012
Vital Signs and I&O:
Vital Signs
Temp Pulse Resp BP Pulse Ox
97.9 F 65 16 124/60 99
04/05/25 07:30 04/05/25 07:30 04/05/25 07:30 04/05/25 07:30 04/05/25 07:30
Vital Signs
Temp Pulse Resp BP Pulse Ox
97.9 F 65 16 124/60 99
04/05/25 07:30 04/05/25 07:30 04/05/25 07:30 04/05/25 07:30 09/17/25 07:30
Intake & Output
04/03/25 04/04/25 04/05/25 04/06/25
06:59 06:59 06:59 06:59
Intake Total 240 / 240 840 / 840
Output Total 200 / 200
Balance 40 / 40 840 / 840
Physical Exam
Physical Exam
General: Well developed, well nourished in NAD.
Neck: Supple, no JVD, HJR, carotids +2 B/L, no bruits bilaterally.
Heart: Non displaced PMI, irregular, no murmurs, No S3, S4, no rubs.
Lungs: Scattered rhonchi
Extremities: No clubbing, cyanosis or edema bilaterally.
Neuro: Grossly nonfocal, awake, alert and oriented x3.
--- NOTE | 2025-04-05 10:51 | CM ---
CM spoke with Shonna at [facility] and she indicated that she would like a report to be called to [phone]/fax [phone]. Patient seen at bedside with guards in place and CM spoke [facility] physician, plan is for discharge post
cardioversion/medical treatment plan back to [facility]. CM will continue to follow for discharge planning needs.
Plan; return with penitentiary guards to [facility] when medically appropriate.
--- NOTE | 2025-04-05 10:53 | W.PN.HOSP.TC ---
Today's Communication/Plan
-
For JOHAN today
Outpatient GI consult for (+) Hep C antibody
MSAS protocol
Glucose control
Continue to monitor
Assessment / Plan
Assessment / Plan
65-year-old with past medical history of diabetes mellitus, and chronic alcohol abuse presented to the ER for asymptomatic abnormal heart rhythm.
#atrial flutter
-asymptomatic, Regular HR/R
-EKG with a flutter with variable AV block, right bundle branch block
-ECHO: EF: 55%, Mild concentric left ventricular hypertrophy, Mild to moderate mitral valve regurgitation. Focal thickening of the anterior leaflet tip.
Troponin 0.012
-For JOHAN/cardioversion today
-heparin drip discontinued
-Eliquis 5mg PO BID
-Diltiazem hcl 120mg PO OD
-Cardiology consulted
# Hyponatremia
-132
continue to monitor
#DM
glucose 100's, Hba1c- 8.8
-serum osm: 288
Urine osm:753, sodium urine: 85
DM management and DM education consult
-SSI, accuchecks
-metformin 1000mg BID PO
#Hepatitis C antibody (+)
-HCV RNA pending, Hep B panel pending
-GI follow up as outpatient
#Alcohol abuse
-drink 12 packs of beer
-last drink was on 03/30/2025
-Thiamine hcl 200mg IV, Folate--> 100mg PO as outpatient
-PRN Lorazepam/Diazepam
-stop drinking alcohol
DVT prophylaxis-Eliquis
Full code
Anticipated Discharge: Within 24 hours
Subjective/Interval History
-
Date of Service: April 05, 2025
The patient has no specific complaints today. He denies palpitation, shortness of breath, chest pain, tremors, nausea, vomiting, and fever.
Objective Data
-
Labs:
Laboratory Results
04/05/25 04/05/25
05:52 05:53
WBC 6.3
Hgb 15.7
Hct 45.0
Plt Count 121 L
Sodium 132 L
Potassium 4.2
Chloride 105
Carbon Dioxide 25
BUN 19
Creatinine 0.7
Glucose 106 H
Calcium 8.9
Total Bilirubin 1.1
AST 119 H
ALT 139 H
Alkaline Phosphatase 100
Vital Signs:
Vital Signs
Temp Pulse Resp BP Pulse Ox
97.9 F 65 16 124/60 99
04/05/25 07:30 04/05/25 07:30 04/05/25 07:30 04/05/25 07:30 04/05/25 07:30
I&O
04/04/25 04/05/25 04/06/25
06:59 06:59 06:59
Intake Total 240 / 240 840 / 840
Output Total 200 / 200
Balance 40 / 40 840 / 840
Review of Systems
-
History Source: Patient
Constitutional: Reports No Symptoms
EENT: Reports No Symptoms Reported
Respiratory: Reports No Symptoms
Cardiac: Reports No Symptoms
Abdomen/GI: Denies Abdominal Pain, Nausea or Vomiting
Genitourinary: Reports No Symptoms
Musculoskeletal: Reports No Symptoms
Neuro: Reports No Symptoms
Physical Exam
-
General: No Apparent Distress, Comfortable and Conversant
HEENT: Normocephalic and Anicteric
Respiratory: Clear to Auscultation
Cardiac: Irregular Rhythm (diminished)
GI: Soft, Nontender and Normal Bowel Sounds
Musculoskeletal: No Clubbing, No Cyanosis and No Edema
Skin: Negative Jaundice
Neuro: AO x 3 and Nonfocal/Grossly Intact
[2025-04-05 14:24] LABS: Glucose - Point of Care 110 mg/dl (70-99)
--- NOTE | 2025-04-05 14:26 | W.DCSUMMARY ---
Discharge Summary
Discharge Data
Date of Admission: 04/03/25
Date of Discharge: 04/05/25
-
Pending Results: Yes
Additional Pending Results:
HCV Quantitative by NAAT, Hepatitis B panel
Hospital Course
Discharging Physician : Alejandro Lopez MD, Delmy Mota MD
Disposition : Senior Living
Primary care physician :
Principal Discharge diagnosis : Atrial Flutter with Variable A-V Block, Right Bundle Branch Block, Diabetes Mellitus, Chronic Alcohol Abuse, Hepatitis C antibody positive-pending HCV RNA.
Chronic Discharge diagnosis :
Hospital Course : 65-year-old male with past medical history of diabetes mellitus and chronic alcohol abuse brought to the Emergency room by senior care staff for an incidental finding of a new onset atrial flutter, while patient was in the infirmary
for evaluation of alcohol withdrawal symptoms. The patient asymptomatic at presentation. He denies any prior personal history of atrial fibrillation.
At the Emergency Department, Troponin <0.012, ECG showed atrial flutter with variable a-v block, and right bundle branch block. IV heparin started per protocol for anticoagulation and MSAS protocol initiated as patient reportedly usually drinks
approximately 12 beers/day and last drink was on 03/30/2025. BMP obtained which showed mild hyponatremia and elevated glucose at 269. Cardiology also consulted. The patient was admitted to telemetry for further evaluation.
The following problems were addressed during this hospitalization:
#Atrial Flutter
-asymptomatic, rate and rhythm controlled
-EKG at presentation showed with a flutter with variable AV block, right bundle branch block. Subsequent, Echocardiogram showed an ejection fraction of 55%, mild concentric left ventricular hypertrophy, mild to moderate mitral valve regurgitation
and focal thickening of the anterior leaflet tip. The patient's heparin drip was continued, later transitioned to Eliquis 5mg PO twice a day for anticoagulation. Diltiazem hcl 120mg PO once a day also started for rate control. Irregular rhythm
persisted and unusual ECHO prompted further evaluation for a Transesophageal Echocardiogram with cardioversion. Alevism of rate and rhythm after the procedure noted. The patient remained asymptomatic throughout his admission, and was deemed
stable for discharge. He will need a follow up with Dr. Fredis Villa after his hospitalization.
#Hyponatremia
May be related to patient's uncontrolled DM. Glucose control with Accuchecks and Sliding insulin scale was initiated in the hospital and the patient will continue with Metformin 1000mg twice a day as outpatient.
#Diabetes Mellitus
The patient noted that he was previously diagnosed with Diabetes Mellitus on insulin and oral medication, but has been non-compliant. In the hospital, his glucose was elevated, and Hba1c was 8.8. Accuchecks and sliding insulin scale was instituted.
Diabetes Management and education given. The patient will continued with metformin 1000mg, twice a day as outpatient.
#Hepatitis C antibody (+)
-HCV RNA and Hep B panel are still pending. Follow up with Dr. Zackary Winters as outpatient in 1-2 weeks is recommended.
#Chronic Alcohol abuse
MSAS check and protocol initiated.
Important imaging findings :
ECHOCARDIOGRAM (04/04/2025):
SUMMARY
1. Left ventricular ejection fraction is normal with an ejection fraction of 55 % by Taylor's biplane method of discs.
2. Indexed left atrial volume is within normal range (15-34 ml/m2).
3. Mild concentric left ventricular hypertrophy.
4. Mild to moderate mitral valve regurgitation.
5. More prominent focal thickening of the anterior leaflet tip noted.
.
PHYSICIAN INTERPRETATION
Left Ventricle:
No regional wall motion abnormalities. Left ventricular ejection fraction is normal with an ejection fraction of 55 % by Taylor's biplane method of discs. Left ventricular cavity size is 3.90 cm which is small in size. There is mild concentric left
ventricular hypertrophy. Diastolic function indeterminate.
Right Ventricle:
The right ventricular cavity size is within normal limits. The right ventricular systolic function is mildly decreased.
Left Atrium:
Indexed left atrial volume is within normal range (15-34 ml/m2).
Right Atrium:
The right atrium is normal in size and structure. The inferior vena cava appears normal.
Interatrial Septum:
The interatrial septum appears normal and intact, with no evidence of interatrial shunting.
Aortic Valve:
Valve opens normally. Aortic valve is trileaflet. Aortic valve sclerosis of multiple aortic cusps; but no stenosis. moderate aortic regurgitation.
Mitral Valve:
Mitral valve opens normally. There is moderate thickening of the mitral valve. mild mitral annular calcification. mild to moderate mitral valve regurgitation. More prominent focal thickening of the anterior leaflet tip noted.
Tricuspid Valve:
Tricuspid valve opens normally. Mild tricuspid regurgitation. Estimated pulmonary artery pressure of 22 mmHg assuming a right atrial pressure of 3 mmHg.
Pulmonic Valve:
Pulmonic valve opens normally. Trace pulmonary valve regurgitation.
Aorta:
The aorta, from all segments that were visualized, appears normal in dimension, with no evidence of dilatation or obstruction.
Pericardium:
There is no evidence of pericardial effusion.
ECG (04/05/2025):
Vent. Rate : 57 BPM Atrial Rate : 57 BPM
P-R Int : 248 ms QRS Dur : 128 ms
QT Int : 474 ms P-R-T Axes : 36 82 12 degrees
QTcB Int : 461 ms
SINUS BRADYCARDIA WITH 1ST DEGREE A-V BLOCK
RIGHT BUNDLE BRANCH BLOCK
ABNORMAL ECG
WHEN COMPARED WITH ECG OF 03-Apr-2025 12:41,
SINUS RHYTHM HAS REPLACED ATRIAL FLUTTER
VENT. RATE HAS DECREASED by 35 bpm
NONSPECIFIC T WAVE ABNORMALITY HAS REPLACED INVERTED T WAVES IN INFERIOR LEADS
Procedure findings :
Discharge Plan
-
Patient Disposition: Senior Living
Discharge Diagnosis/Procedures: Atrial Flutter with Variable A-V Block, Right Bundle Branch Block, Diabetes Mellitus, Chronic Alcohol Abuse, Hepatitis C antibody positive-pending HCV RNA.
Condition: Good
Diet: Diabetic, Carb Controlled
Activity: As tolerated
Driving Restrictions: No driving for 24 hours
Bathing Restrictions: None
Blood Work: Follow up on pending HCV Quantitative by NAAT, Hepatitis B panel
Others Tests: Repeat CMP in 1 week
Referrals:
[facility] [Family Provider, General] - in less than 1 week
Referral Note: Please follow up on pending Hepatitis Panel. Repeat CMP test.
Zackary Winters MD [Active, Gastroenterology] - in one to two weeks
Referral Note: HCV POS
Fredis Villa MD [Active, Cardiology]
Referral Note: The cardiology office is working on an appointment for you to be seen for follow-up.
Additional Discharge Medication Instructions: - Start taking Cardizem CD (diltiazem) 120 mg daily to help slow down heart rate and reduce risk of recurrent atrial fibrillation
- Start taking Eliquis 5 mg twice daily to reduce risk of blood clot following successful cardioversion on 04/05/2025. Follow-up with cardiology in the office to determine if you need Eliquis long-term.
Prescriptions:
New
diltiazem HCl 120 mg Capsule,Extended Release 24hr
120 mg PO DAILY Qty: 30 11RF
Eliquis 5 mg Tablet
5 mg PO BID Qty: 60 0RF
metformin 1,000 mg Tablet
1,000 mg PO BID@0800,1700 Qty: 60 0RF
(DME) Comprehensive Metabolic Panel
See Rx Instructions .ROUTE .MEDSUPPLY Qty: 1 0RF
Rx Instructions:
Repeat Comprehensive Metabolic Panel in 1 week
Diagnosis: Hepatitis C antibody (+), transaminitis, DM
Send results to PCP
Continued
multivitamin Tablet
1 tab PO DAILY
quetiapine [Seroquel] 25 mg Tablet
25 mg PO DAILY
clonazepam 1 mg Tablet
1 mg PO .TAPER
Patient Comments:
04/03/2025: 1MG TID FROM 04/03-04/04, 1MG BID FROM 04/05-04/06, 0.5MG BID FROM 04/07-04/08, 0.5MG DAILY FROM 04/09
diphenhydramine HCl [Benadryl] 25 mg Capsule
25 mg PO BID
folic acid 1 mg Tablet
1 mg PO DAILY
magnesium 200 mg Tablet
400 mg PO DAILY
quetiapine [Seroquel] 50 mg Tablet
50 mg PO HS
thiamine HCl (vitamin B1) [Vitamin B-1] 100 mg Tablet
100 mg PO DAILY
Discharge Orders:
Discharge Patient (As Directed); Ordered 04/05/25
Ordered By: Alejandro Lopez
Discharge Date and Time
Print Language: [place]
[2025-04-05 15:00] VITALS: BP 126/66
[2025-04-06 19:06] LABS: Hepatitis B Surface Antigen Negative (Negative)
[2025-04-07 05:23] LABS: HCV Quant by NAAT IU/mL 11800000 IU/mL; HCV Quant by NAAT Interp Detected (Not Detected); HCV Quant by NAAT Log IU/mL 7.07 log IU/mL
== END 2025-04-05 15:34 | DRG 309 ==
LOC: 3 WEST ACU 16:03
PROVIDERS: Internal Medicine Cardiovascular Disease; Registered Nurse; ADMITTING PHYSICIAN Internal Medicine; ATTENDING PHYSICIAN Internal Medicine; EMERGENCY PHYSICIAN Emergency Medicine; OTHER PHYSICIAN Internal Medicine Cardiovascular Disease
PROC: B24BZZ4 Ultrasonography of Heart with Aorta, Transesophageal (ICD-10-PCS; 2025-04-05)
PROC: 5A2204Z Restoration of Cardiac Rhythm, Single (ICD-10-PCS; 2025-04-05)
DX: I48.3 Typical atrial flutter (principal); E87.1 Hypo-osmolality and hyponatremia; F10.10 Alcohol abuse, uncomplicated; B19.20 Unspecified viral hepatitis C without hepatic coma; E86.1 Hypovolemia; F17.210 Nicotine dependence, cigarettes, uncomplicated; I45.10 Unspecified right bundle-branch block; E11.65 Type 2 diabetes mellitus with hyperglycemia; I05.1 Rheumatic mitral insufficiency; R74.01 Elevation of levels of liver transaminase levels; Z91.148 Patient's other noncompliance with medication regimen for other reason; Z79.899 Other long term (current) drug therapy; Z79.84 Long term (current) use of oral hypoglycemic drugs; Z79.4 Long term (current) use of insulin
CPT/HCPCS: 80048; 80053; 80061; 82077; 82962; 83036; 83930; 83935; 84300; 84484; 85025; 85027; 85730; 86704; 86705; 86706; 86803; 87070; 87147; 87340; 87522; 92960; 93005; 93306; 93312; 93320; 93325; 99285